=== PATIENT | female | born 1985 | race Caucasian/White ===

== ENCOUNTER → 2016-12-04 | Outpatient (CLI) | payer MEDICAID ==
[2016-12-04 19:28] LABS: MEAN CORPUSCULAR HEMOGLOBIN 28.9 pg (27.0-33.0); MEAN CORPUSCULAR HGB CONC 32.8 g/dl (32.0-36.5); RED CELL DISTRIBUTION WIDTH 13.7 % (11.5-14.5); WHITE BLOOD COUNT 9.6 K/mm3 (4.0-10.0)
== END ==
LOC: M SMT 13:26
PROVIDERS: ATTEND Advanced Practice Midwife
DX: Z34.82 Encounter for supervision of other normal pregnancy, second trimester (principal)

== ENCOUNTER 2016-12-20 06:25 | Inpatient (IN) | payer MEDICAID ==
[2016-12-20] VITALS (13 sets, daily range): BP systolic 130–162; BP diastolic 73–102
[~2016-12-20] VITALS: Ht 154.9 cm; Wt 90.0 kg
[2016-12-20] MEDS ORDERED: LR 1,000 ML IV SCH (06:40)
[2016-12-20] MEDS ORDERED: LACTATED RINGER'S 1000 ML IV STA (06:40)
[2016-12-20] MEDS ORDERED: PENICILLIN G POTASSIUM IV 5 MU in D5W MINI-BAG PLUS 100 ML IV STA (06:40)
[2016-12-20] MEDS ORDERED: OXYTOCIN 30 UNITS IN 0.9% NaCl 500ML IV BAG (J2590) As Ordered ONE (06:59)
[2016-12-20 07:03] LABS: MEAN CORPUSCULAR HEMOGLOBIN 28.8 pg (27.0-33.0); MEAN CORPUSCULAR HGB CONC 33.4 g/dl (32.0-36.5); MEAN CORPUSCULAR VOLUME 86.3 fl (80.0-96.0); RED CELL DISTRIBUTION WIDTH 14.2 % (11.5-14.5)
[2016-12-20] MEDS ORDERED: OXYTOCIN DRIP 30 UNITS in APPROPRIATE DILUENT 1 EA IV SCH (07:37)
[2016-12-20] MEDS ORDERED: DOCUSATE SODIUM 100 MG CAP PO PRN (07:45)
[2016-12-20] MEDS ORDERED: DIBUCAINE 1% OINTMENT 30GM TOP PRN (07:45)
[2016-12-20] MEDS ORDERED: METHYLERGONOVINE MALEATE 0.2 MG TAB PO PRN (07:45)
[2016-12-20] MEDS ORDERED: RHOGAM 300 MCG (1500 IU) INJ (J2790) IM SCH (07:45)
[2016-12-20] MEDS ORDERED: LIDOCAINE 1% MDV INJ 50 ML VIAL INFIL ONE (07:45)
[2016-12-20] MEDS ORDERED: MEASLES,MUMPS,RUBELLA VACCINE INJ (MMR-II) (90707) SC SCH (07:45)
[2016-12-20] MEDS ORDERED: ANUSOL HC CREAM 30GM TOP PRN (07:45)
[2016-12-20 08:19] LABS: ALT/SGPT 21 U/L (12-78); AST/SGOT 20 U/L (15-37); BILIRUBIN,TOTAL 0.1 MG/DL (0.2-1.0); CREATININE FOR GFR 0.61 MG/DL (0.55-1.02); GLOMERULAR FILTRATION RATE > 60.0 (>60); URIC ACID 3.1 MG/DL (2.6-6.0)
[2016-12-20] MEDS: PRENATAL VITAMIN TAB PO SCH (09:00)
--- NOTE | 2016-12-20 09:36 | HPE ---
DATE OF ADMISSION: 12/20/2016 31-year-old, 4, para 2-0-1-2, estimated date of delivery 01/02/2017, presents at 38 weeks 1 day with reports of contractions since midnight, now every few minutes. Denies loss of fluid or bleeding. Fetus is active. Last normal menstrual period unknown. Sono at 8 weeks confirmed her date. Anatomy scan within normal limits. Late transfer to [facility] at 35 weeks. Sporadic care. Did not complete 3-hour glucose despite elevated 1-hour GCT. NO KNOWN DRUG ALLERGIES. OBSTETRICAL HISTORY: December 2005, normal spontaneous vaginal , viable male, 6 pounds 13, at 39 weeks. 2006, early miscarriage. June 2013, normal spontaneous vaginal , viable male, 6 pounds 1. Blood sugar issues and hypothermia. Was in the intensive care unit (NICU) for 3 days. Medical-surgical is noncontributory. Family history of a seizure disorder. SOCIAL: Single. Former smoker, quit with . Denies alcohol, drugs or abuse. Family is present. OBJECTIVE: Prepregnancy weight 155, total weight gain 60 pounds. O+, antibody negative, rubella immune. VDRL, hepatitis B, hepatitis C, HIV, gonorrhea, Chlamydia all negative. 1-hour glucose 141. 3-hour was ordered but not performed. Group B strep is positive. She is uncomfortable, breathing with contraction. Blood pressures are mildly elevated, 160s over 90s. heart 135, moderate variability and accelerations. Uterine contractions 2-3 minutes apart for 60 seconds. Sterile vaginal exam: 9 cm, 100% effaced, minus 1 station with a bulging bag of water. ASSESSMENT: Multipara at term, imminent delivery. PLAN: Admit, labs, a normal spontaneous vaginal .
--- NOTE | 2016-12-20 10:01 | DN ---
DATE: 12/20/2016 Artificial rupture of membranes, clear fluid, and fully dilated at 0704. Viable female delivered left occiput anterior (BRAYDON) at 0711. Spontaneous respirations with stimulation. Transitioned on maternal abdomen. Cord doubly clamped and cut once pulsations ceased. Apgars were 8 and 9. Placenta Irvin intact with three-vessel cord at 0718. Fundus firmed with massage and IV Pitocin bolus. Estimated blood loss 150 mL. First-degree vaginal laceration repaired with #3-0 Vicryl Rapide after infiltration with lidocaine. weight 6 pounds 13 ounces, 3090 grams. Sponge, sharp and instrument count correct. Mom is naming her daughter Shayla Fortune.
[2016-12-20] MEDS ORDERED: PENICILLIN G POTASSIUM IV 2.5 MU in D5W 100 ML IV SCH (11:00)
[2016-12-20] MEDS ORDERED: IBUPROFEN 800 MG TAB PO SCH (20:00)
[2016-12-20] MEDS ORDERED: ACETAMINOPHEN 500 MG TAB PO PRN (20:00)
[2016-12-20] MEDS ORDERED: IBUPROFEN 800 MG TAB PO PRN (20:15)
[2016-12-21 05:19] VITALS: BP 126/78
[2016-12-21 08:22] VITALS: BP 126/78
[2016-12-21] MEDS ORDERED: IBUP-1114 PO (08:34)
[2016-12-21] MEDS ORDERED: ACET50TA PO (08:34)
[2016-12-21] MEDS: PRENATAL VITAMIN TAB PO SCH (08:36)
== END 2016-12-21 16:00 | disposition home or self-care (01) | DRG 560 ==
LOC: M LDO 06:25 → M LDI 06:40 → M OBS 10:08
PROVIDERS: ADMIT Advanced Practice Midwife; ATTEND Advanced Practice Midwife
PROC: 10E0XZZ Delivery of Products of Conception, External Approach (ICD-10-PCS; principal; 2016-12-20)
PROC: 10907ZC Drainage of Amniotic Fluid, Therapeutic from Products of Conception, Via Natural or Artificial Opening (ICD-10-PCS; 2016-12-20)
PROC: 0HQ9XZZ Repair Perineum Skin, External Approach (ICD-10-PCS; 2016-12-20)
DX: O99.824 Streptococcus B carrier state complicating childbirth (principal); Z37.0 Single live birth; Z3A.38 38 weeks gestation of pregnancy; O70.0 First degree perineal laceration during delivery

== ENCOUNTER → 2017-02-04 | Day surgery (SDC) | payer MEDICAID, OTHER ==
[~2017-02-04] VITALS: Ht 154.9 cm; Wt 83.9 kg
[~2017-02-04] MED LIST: ACET50TA PO; ACET50TAOT PO; BUPIVACAINE HCL 0.25% 10 ML VIAL As Ordered ONE; ELIQ5TAB PO; GLYCOPYRROLATE INJ 0.2 MG/ML 2 ML VIAL As Ordered ONE; HYDROmorphone HCL 2 MG/ML 1ML VIAL (J1170) As Ordered ONE; IBUP-1114 PO; KETOROLAC 60 MG/2 ML VIAL (J1885) As Ordered ONE; LR 1,000 ML IV SCH; METOCLOPRAMIDE INJ 10MG/2ML VIAL (J2765) As Ordered ONE; MIDAZOLAM INJ 2 MG/2 ML VIAL (J2250) As Ordered ONE; NEOSTIGMINE 1MG/ML 5 ML SYRINGE (J2710) As Ordered ONE; NORCOTAB PO; ONDANSETRON 4MG/2ML VIAL (J2405) As Ordered ONE; ONDANSETRON 4MG/2ML VIAL (J2405) IV PRN; PERCOCET 5MG/325MG TAB PO PRN; PROPOFOL 500 MG/50 ML VIAL As Ordered ONE; SENN1TAB2 PO; dexameTHASONE 4 MG/ML 1ML VIAL (J1100) As Ordered ONE; fentaNYL 100 MCG/2 ML INJECTION (J3010) As Ordered ONE; fentaNYL 100 MCG/2 ML INJECTION (J3010) IV PRN
[2017-02-04 08:39] LABS: MEAN CORPUSCULAR HEMOGLOBIN 28.8 pg (27.0-33.0); MEAN CORPUSCULAR HGB CONC 33.5 g/dl (32.0-36.5); MEAN CORPUSCULAR VOLUME 86.1 fl (80.0-96.0); RED CELL DISTRIBUTION WIDTH 14.9 % (11.5-14.5)
[2017-02-04 08:52] LABS: CONTROL LINE HCG INT CTR LINE PRESENT
--- NOTE | 2017-02-04 11:42 | RO ---
DATE OF OPERATION: 02/04/2017 PREOPERATIVE DIAGNOSIS: Satisfied parity with undesired fertility. POSTOPERATIVE DIAGNOSIS: Satisfied parity with undesired fertility. PROCEDURE PERFORMED: Laparoscopic bilateral tubal ligation using Filshie clips. SURGEON: Elly Coe MD CYTOLOGY TECHNOLOGIST: Pablo Lobo DO, PGY-1 ANESTHESIA: General endotracheal anesthesia. ESTIMATED BLOOD LOSS: 5 mL. INTRAVENOUS FLUIDS: 1 liter of lactated Ringer solution. URINE OUTPUT: 100 mL. PREOPERATIVE ANTIBIOTICS: None. INFECTION CLASSIFICATION: #1. SPECIMENS: None. OPERATIVE FINDINGS: The patient with normal-appearing bilateral adnexa, normal-appearing uterus. Appendix was visualized and appeared to be normal. Normal-appearing liver edge. DESCRIPTION OF OPERATION: After informed consent was obtained and written consent was reviewed, the patient was brought to the operating room, where general endotracheal anesthesia was obtained. She was then placed in lithotomy position and was prepped and draped in a normal sterile fashion. A time-out in the operating room was then performed identifying the patient, the procedure to be performed, as well as drug allergies. A bivalved speculum was then placed, revealing the cervix. The anterior lip of the cervix was grasped with a single-tooth tenaculum. A Hulka tenaculum was then advanced through the cervical os for means to manipulate the uterus. The single tooth tenaculum and speculum were then removed. A Saba catheter was then placed and set to gravity. Gloves were changed. Attention was turned to the patient's abdomen, where 0.25% Marcaine was infused in umbilical region. This area was incised, and a 5 mm trocar and sleeve was advanced through this incision. The laparoscope was replaced revealing intra-abdominal placement. A pneumoperitoneum was then obtained with CO2 gas. The abdomen was then surveyed with the above-noted findings. A second port was placed. This was 2 cm above the pubic symphysis in the midline. This area was infused with 0.25% Marcaine, and incision was made in this area, and an 8 mm trocar and sleeve was advanced through this incision under direct visualization. Next, the right fallopian tube was followed out to the fimbriated end using a Filshie clip applicator. A Filshie clip was applied in the mid isthmic portion of the right fallopian tube with good blanching noted. The left fallopian tube was then followed out to the fimbriated end in a similar fashion using the Filshie clip applicator. Once reloaded, a Filshie clip was applied in the mid isthmic portion of the left fallopian tube with good blanching noted. The instruments were then removed, and the pneumoperitoneum was released. The trocars were removed. The incisions were then closed with 4-0 Monocryl and was dressed with Dermabond. The Hulka tenaculum was removed. The tenaculum sites were hemostatic. The Saba catheter was also removed. The patient was then awakened from general anesthesia and taken to recovery in stable condition. Counts were correct.
[2017-02-04 14:45] VITALS: BP 135/72
== END | disposition home or self-care (01) ==
LOC: M SDC 08:05
PROVIDERS: ATTEND Obstetrics & Gynecology
DX: Z30.2 Encounter for sterilization (principal); I10 Essential (primary) hypertension; K21.9 Gastro-esophageal reflux disease without esophagitis; F17.210 Nicotine dependence, cigarettes, uncomplicated

== ENCOUNTER 2017-03-08 12:27 | Inpatient (IN) | payer OTHER ==
[~2017-03-08] VITALS: Ht 154.9 cm; Wt 82.5 kg
[~2017-03-08 12:27] MED LIST changes: -ACET50TAOT PO; -BUPIVACAINE HCL 0.25% 10 ML VIAL As Ordered ONE; -ELIQ5TAB PO; -GLYCOPYRROLATE INJ 0.2 MG/ML 2 ML VIAL As Ordered ONE; -HYDROmorphone HCL 2 MG/ML 1ML VIAL (J1170) As Ordered ONE; -KETOROLAC 60 MG/2 ML VIAL (J1885) As Ordered ONE; -LR 1,000 ML IV SCH; -METOCLOPRAMIDE INJ 10MG/2ML VIAL (J2765) As Ordered ONE; -MIDAZOLAM INJ 2 MG/2 ML VIAL (J2250) As Ordered ONE; -NEOSTIGMINE 1MG/ML 5 ML SYRINGE (J2710) As Ordered ONE; -NORCOTAB PO; -ONDANSETRON 4MG/2ML VIAL (J2405) As Ordered ONE; -ONDANSETRON 4MG/2ML VIAL (J2405) IV PRN; -PERCOCET 5MG/325MG TAB PO PRN; -PROPOFOL 500 MG/50 ML VIAL As Ordered ONE; -SENN1TAB2 PO; -dexameTHASONE 4 MG/ML 1ML VIAL (J1100) As Ordered ONE; -fentaNYL 100 MCG/2 ML INJECTION (J3010) As Ordered ONE; -fentaNYL 100 MCG/2 ML INJECTION (J3010) IV PRN
[2017-03-08] MEDS ORDERED: NS 1,000 ML IV ONE (12:45)
[2017-03-08] MEDS: MORPHINE 4 MG/ML 1ML SYRINGE IV PRN ×4 (12:48→23:21)
[2017-03-08] MEDS ORDERED: ISOVUE-370 76% 100ML VIAL (Q9967) As Ordered ONE (12:56)
[2017-03-08 13:14] LABS: BASO # 0.1 K/mm3 (0.0-0.2); BASO % 0.5 % (0.0-1.0); EOS # 0.2 K/mm3 (0.0-0.50); EOS % 1.1 % (0.0-3.0); LARGE UNSTAINED CELL # 0.1 K/mm3 (0.0-0.4); LARGE UNSTAINED CELL % 0.7 % (0.0-4.0); LYMPH # 2.8 K/mm3 (1.5-4.5); MEAN CORPUSCULAR HEMOGLOBIN 29.3 pg (27.0-33.0); MEAN CORPUSCULAR HGB CONC 33.4 g/dl (32.0-36.5); MEAN CORPUSCULAR VOLUME 87.7 fl (80.0-96.0); MONO # 0.7 K/mm3 (0.0-0.8); MONO % 4.4 % (0.0-5.0); NEUTROPHILS # 12.3 K/mm3 (1.8-7.7); NEUTROPHILS % 76.2 % (36.0-66.0); PLATELET COUNT, AUTOMATED 276 k/mm3 (150-450); RED CELL DISTRIBUTION WIDTH 15.8 % (11.5-14.5); WHITE BLOOD COUNT 16.1 K/mm3 (4.0-10.0)
[2017-03-08 13:19] LABS: INR 0.96
[2017-03-08 13:45] LABS: CONTROL LINE HCG INT CTR LINE PRESENT
[2017-03-08 13:55] LABS: BLOOD UREA NITROGEN 14 MG/DL (7-18); CREATININE FOR GFR 0.62 MG/DL (0.55-1.02); GLUCOSE, FASTING 104 MG/DL (70-105)
[2017-03-08 13:56] LABS: ALBUMIN 4.1 GM/DL (3.2-5.2); ALBUMIN/GLOBULIN RATIO 1.17 (1.00-1.93); ALKALINE PHOSPHATASE 149 U/L (45-117); ALT/SGPT 33 U/L (12-78); ANION GAP 8 MEQ/L (8-16); AST/SGOT 21 U/L (15-37); BILIRUBIN,DIRECT < 0.1 MG/DL (0.0-0.2); BILIRUBIN,TOTAL 0.3 MG/DL (0.2-1.0); CARBON DIOXIDE LEVEL 24 MEQ/L (21-32); CHLORIDE LEVEL 106 MEQ/L (98-107); GLOMERULAR FILTRATION RATE > 60.0 (>60); POTASSIUM SERUM 3.7 MEQ/L (3.5-5.1); SODIUM LEVEL 138 MEQ/L (136-145); TOTAL PROTEIN 7.6 GM/DL (6.4-8.2)
[2017-03-08] MEDS ORDERED: ADACEL/BOOSTRIX VACCINE (DIPHTH/PERTUSS/ACELL/TETANUS)0.5ML SYR (90715) IM ONE (14:00)
--- NOTE | 2017-03-08 14:31 | REP ---
CT Head without contrast HISTORY: Trauma COMPARISON: None There is no intraparenchymal hemorrhage, acute infarct, mass or midline shift. The ventricular system is normal in appearance. There is no extra cerebral collection. There is no fracture. The visualized sinuses are clear. IMPRESSION: There is no intracranial lesion. Signed by Elijah Baker MD 03/08/2017 02:23 P
--- NOTE | 2017-03-08 14:35 | REP ---
CT cervical spine without contrast HISTORY: Trauma COMPARISON: None There is no acute fracture or subluxation. There is no disc bulge or herniation. The spinal canal and neural foramina are patent. A small calcification is present posterior to the right C5-6 facet joint. This represents ligamentous or tendon calcification. The intervertebral discs and vertebral bodies are normal in height. IMPRESSION: There is no acute fracture or subluxation. Signed by Elijah Baker MD 03/08/2017 02:27 P
--- NOTE | 2017-03-08 14:51 | REP ---
CT of the chest with IV contrast: There are no comparisons. There is no pneumothorax, hemothorax or pulmonary contusion. The lung duarte are otherwise clear. The thoracic aorta is unremarkable. There is no mediastinal hematoma. There is a right clavicle mid shaft fracture. The right subclavian artery is intact. There may be a focal thrombus in the right subclavian vein in the region of the fracture. The left clavicle is unremarkable. There is no scapular fracture. No rib fractures are identified. No vertebral fractures or sternal fractures are identified. Impression: No pneumothorax, hemothorax or pulmonary contusion. Right midshaft clavicle fracture. The right subclavian artery is intact. Possible focal thrombus in the right subclavian vein adjacent to the fracture site. No other fractures are identified. Signed by Alvaro Pineda MD 03/08/2017 02:43 P
--- NOTE | 2017-03-08 14:56 | REP ---
CT abdomen pelvis with IV contrast: The studies performed. Contiguous to the CT of the chest this same day utilizing the same IV contrast bolus. There are no comparison studies. There is no pneumoperitoneum, hemoperitoneum or retroperitoneal hematoma. The hepatic parenchyma is homogeneous. The gallbladder and pancreas are unremarkable. The spleen is homogeneous. The adrenals are unremarkable. [id number] kidneys are unremarkable. Abdominal aorta is unremarkable. There is no bowel wall distension or wall thickening. Pelvis: The uterus and adnexa are unremarkable. The bladder is unremarkable. There is no lumbar, sacral, pelvic or hip fracture. Impression: No pneumoperitoneum or hemoperitoneum. No retroperitoneal hemorrhage. No solid organ injury. No fracture. Otherwise, negative CT study of the abdomen and pelvis. Signed by Alvaro Pineda MD 03/08/2017 02:47 P
[2017-03-08] MEDS ORDERED: HEPARIN DRIP 25,000 UNITS in APPROPRIATE DILUENT 1 EA IV SCH ×2 (15:07→18:44)
[2017-03-08] MEDS ORDERED: HEPARIN SOD (PORCINE) 5000 UNITS/ML VIAL IV ONE (15:15)
[2017-03-08] MEDS ORDERED: ACET50TAOT PO (15:30)
[2017-03-08] MEDS ORDERED: ONDANSETRON 4MG/2ML VIAL (J2405) IV PRN (16:00)
[2017-03-08] MEDS ORDERED: MOM 30ML SUSPENSION UDC PO PRN (16:00)
[2017-03-08] MEDS ORDERED: ACETAMINOPHEN TAB 650MG DOSE (2X325MG) PO PRN (16:00)
[2017-03-08] MEDS: KETOROLAC 30 MG/ML VIAL (J1885) IV PRN ×2 (16:29→23:20)
[2017-03-08 18:45] VITALS: BP 135/78
[2017-03-08] MEDS ORDERED: HEPARIN SOD (PORCINE) 5000 UNITS/ML VIAL IV PRN (18:45)
[2017-03-08 19:36] LABS: MEAN CORPUSCULAR HEMOGLOBIN 29.7 pg (27.0-33.0); MEAN CORPUSCULAR VOLUME 87.5 fl (80.0-96.0); RED CELL DISTRIBUTION WIDTH 15.9 % (11.5-14.5); WHITE BLOOD COUNT 14.9 K/mm3 (4.0-10.0)
[2017-03-08 19:52] VITALS: BP 133/74
[2017-03-08] MEDS: SENOKOT S TAB PO SCH (21:00)
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
[2017-03-08] MEDS: ceFAZolin SOD 1 GM in D5W MINI-BAG PLUS 50 ML IV SCH (22:33)
[2017-03-08 23:59] VITALS: BP 113/73
[2017-03-09] MEDS: ceFAZolin SOD 1 GM in D5W MINI-BAG PLUS 50 ML IV SCH ×2 (02:47→09:35)
[2017-03-09 03:14] VITALS: BP 111/71
[2017-03-09] MEDS: NORCO, ANEXSIA 5/325MG TABLET (HYDROcodone/ACETAMINOPHEN) PO PRN ×2 (03:16→09:34)
[2017-03-09 05:38] LABS: MEAN CORPUSCULAR HGB CONC 33.7 g/dl (32.0-36.5); MEAN CORPUSCULAR VOLUME 88.9 fl (80.0-96.0); RED CELL DISTRIBUTION WIDTH 16.1 % (11.5-14.5)
[2017-03-09 05:54] LABS: ALBUMIN 3.2 GM/DL (3.2-5.2); ALBUMIN/GLOBULIN RATIO 1.03 (1.00-1.93); ALKALINE PHOSPHATASE 121 U/L (45-117); ALT/SGPT 26 U/L (12-78); ANION GAP 9 MEQ/L (8-16); AST/SGOT 21 U/L (15-37); BILIRUBIN,TOTAL 0.3 MG/DL (0.2-1.0); BLOOD UREA NITROGEN 12 MG/DL (7-18); CARBON DIOXIDE LEVEL 24 MEQ/L (21-32); CHLORIDE LEVEL 109 MEQ/L (98-107); CREATININE FOR GFR 0.47 MG/DL (0.55-1.02); GLOMERULAR FILTRATION RATE > 60.0 (>60); GLUCOSE, FASTING 101 MG/DL (70-105); POTASSIUM SERUM 3.2 MEQ/L (3.5-5.1); SODIUM LEVEL 142 MEQ/L (136-145); TOTAL PROTEIN 6.3 GM/DL (6.4-8.2)
[2017-03-09 08:00] VITALS: BP 121/63
[2017-03-09] MEDS: SENOKOT S TAB PO SCH (08:54)
[2017-03-09] MEDS ORDERED: APIXABAN 5 MG TAB (ELIQUIS) PO SCH (09:00)
[2017-03-09] MEDS ORDERED: PANTOPRAZOLE 40MG TAB (PROTONIX) PO SCH (09:00)
[2017-03-09] MEDS ORDERED: NORCOTAB PO (10:54)
[2017-03-09] MEDS ORDERED: SENN1TAB2 PO (10:54)
[2017-03-09] MEDS ORDERED: ELIQ5TAB PO (13:09)
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
== END 2017-03-09 14:10 | disposition home or self-care (01) | DRG 342 ==
LOC: M ED 12:27 → M ED INP 15:58 → M PCU 18:12
PROVIDERS: ADMIT Surgery; ATTEND Surgery
DX: S42.021A Displaced fracture of shaft of right clavicle, initial encounter for closed fracture (principal); I82.B11 Acute embolism and thrombosis of right subclavian vein; V43.52XA Car driver injured in collision with other type car in traffic accident, initial encounter; Y92.410 Unspecified street and highway as the place of occurrence of the external cause; Y93.89 Activity, other specified; Y99.9 Unspecified external cause status; F17.210 Nicotine dependence, cigarettes, uncomplicated; Z98.51 Tubal ligation status

== ENCOUNTER → 2017-03-29 | Outpatient (CLI) | payer OTHER ==
[~2017-03-29] MED LIST changes: +ACET50TAOT PO; +ELIQ5TAB PO; +ISOVUE-370 76% 100ML VIAL (Q9967) As Ordered ONE; +NORCOTAB PO; +SENN1TAB2 PO
--- NOTE | 2017-03-29 16:07 | REP ---
CT chest with IV contrast: History: Acute embolism and thrombosis of the right subclavian vein. Right clavicle fracture. Comparison CT study March 08, 2017. CT contrast dose: 75 mL of intravenous Isovue 370 is administered via a left arm vein. Helical scanning is acquired at equilibrium phase. Findings: There is homogeneous enhancement indicating patency in the right subclavian vein. Right axillary vein, right internal jugular vein and right superior vena cava appear intact as well. Left subclavian vein is unremarkable. There is some healing callus formation around the right clavicle fracture. Its alignment is improved when compared with the prior study. There is no observable mass effect on the subclavian artery vein or adjacent nerves. The lungs are well inflated and clear. No pleural or pericardial effusion is seen. No hilar or mediastinal mass or adenopathy is observed. The upper abdominal structures are unremarkable. Impression: No evidence of occlusion, thrombosis, or extrinsic compression of the subclavian vein. Healing right clavicle fracture. Signed by Phillip Mckeon MD 03/29/2017 04:36 P
== END ==
LOC: M RAD 08:11
PROVIDERS: ATTEND Surgery
DX: I82.B11 Acute embolism and thrombosis of right subclavian vein (principal)